=== PATIENT | female | born 1985 | race Caucasian/White ===

== ENCOUNTER 2017-02-04 18:39 | Emergency (ER) | payer MEDICAID ==
[~2017-02-04] VITALS: Ht 162.6 cm; Wt 100.8 kg
[~2017-02-04 18:39] MED LIST: Docusate Sod/Senna PO; IBUP600 PO; OXYC10 PO; RANI150 PO; ZOLO50TA PO; [UNRECOGNIZED DRUG - CODE] IM
[2017-02-04 18:45] VITALS: BP 125/83; PULSE 100; RESP 16; TEMP 99; O2SAT 100; O2SAT 62
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
[2017-02-04] MEDS ORDERED: KETOROLAC TROMETHAMINE 60 MG/2 ML (IM) VIAL IM ONE (19:30)
[2017-02-04] MEDS ORDERED: IBUP-232 PO (19:38)
[2017-02-04] MEDS ORDERED: EXTR500C PO (19:38)
[2017-02-04] MEDS ORDERED: CYCL1TAB29 PO (19:38)
== END 2017-02-04 19:48 | disposition home or self-care (01) ==
LOC: PHED 18:39
DX: S39.012A Strain of muscle, fascia and tendon of lower back, initial encounter (principal); X58.XXXA Exposure to other specified factors, initial encounter; Y93.72 Activity, wrestling; Y92.9 Unspecified place or not applicable
CPT/HCPCS: 96372; 99283; J1885

== ENCOUNTER 2017-02-15 16:20 | Emergency (ER) | payer SELFPAY ==
[~2017-02-15] VITALS: Ht 162.6 cm; Wt 102.0 kg
[~2017-02-15 16:20] MED LIST changes: +CYCL1TAB29 PO; -Docusate Sod/Senna PO; +EXTR500C PO; +IBUP-232 PO; -IBUP600 PO; -OXYC10 PO; -RANI150 PO; -ZOLO50TA PO; -[UNRECOGNIZED DRUG - CODE] IM
[2017-02-15 16:30] VITALS: BP 111/81; PULSE 75; RESP 15; TEMP 98.6; O2SAT 98
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
[2017-02-15] MEDS ORDERED: KETOROLAC TROMETHAMINE 60 MG/2 ML (IM) VIAL IM ONE (17:00)
[2017-02-15] MEDS ORDERED: DIAZEPAM 5 MG TAB PO ONE (17:15)
[2017-02-15 18:05] VITALS: RESP 14
== END 2017-02-15 18:10 | disposition home or self-care (01) ==
LOC: PHEFT 16:20
DX: G57.01 Lesion of sciatic nerve, right lower limb (principal)
CPT/HCPCS: 96372; 99284; J1885

== ENCOUNTER 2017-06-13 16:16 | Emergency (ER) | payer OTHER ==
[~2017-06-13] VITALS: Ht 160 cm; Wt 102.4 kg
[2017-06-13 16:21] VITALS: BP 126/63; PULSE 84; RESP 15; TEMP 98.6; O2SAT 96
[2017-06-13] MEDS ORDERED: BUSP15TA PO (16:28)
[2017-06-13] MEDS ORDERED: ZOLO100T PO (16:28)
--- NOTE | 2017-06-13 16:52 | PD ---
HPI Chief Complaint: Cold / Flu Symptoms Time Seen by Provider: 16:28 Travel History International Travel<30 days: No Contact w/Intl Traveler<30days: No Traveled to known affect area: No History of Present Illness HPI 31-year-old female presents to the emergency room for evaluation of nonproductive cough, congestion, sore throat, and body aches for the past 4 days. Patient reports subjective fevers but has not actually taken her temperature. Her boyfriend was sick with similar symptoms. She has not taken anything [id number] for her symptoms. No chronic medical conditions. She takes BuSpar and Zoloft daily. History Past Medical Histgory Hx Cancer: No Social History Alcohol Use: Yes (rarely) Tobacco Use: No Allergies-Medications (Allergen,Severity, Reaction): Coded Allergies: No Known Allergies (Verified , 06/13/17) Reported Meds & Prescriptions Reported Meds & Active Scripts Active Reported Buspirone (Buspirone HCl) 15 Mg Tab Unknown Dose PO BID Zoloft (Sertraline HCl) 100 Mg Tab 100 Mg PO DAILY Review of Systems Except as stated in HPI: all other systems reviewed are Neg Physical Exam Narrative GENERAL: Well-nourished, well-developed female in no acute distress. Afebrile. Ambulatory. SKIN: Focused skin assessment warm/dry. HEAD: Normocephalic. EYES: No scleral icterus. No injection or drainage. NECK: Supple, trachea midline. No JVD or lymphadenopathy. ENT: Mucosa pink and moist. Mild erythema without edema or exudates. No uvular edema. No uvular, palatal, or tonsillar deviation. Airway patent. Nasal turbinates appear normal without nasal blood, purulent drainage or septal hematoma. EARS: Bilateral pinnae and external canals appear within normal limits. Bilateral tympanic membranes without erythema, dullness or perforation. CARDIOVASCULAR: Regular rate and rhythm without murmurs, gallops, or rubs. RESPIRATORY: Breath sounds equal bilaterally. No accessory muscle use. No crackles, rales, wheezes, or rhonchi. Data Data Last Documented VS Vital Signs Date Time Temp Pulse Resp B/P (MAP) Pulse Ox O2 Delivery O2 Flow Rate FiO2 06/13/17 16:21 98.6 84 15 126/63 (84) 96 MDM Medical Screen Exam Complete: Yes Emergency Medical Condition: No Differential Diagnosis Upper respiratory infection Narrative Course 31-year-old female presents to the emergency room for evaluation of upper respiratory symptoms for the past 4 days. She is afebrile well-appearing in the emergency room. Vital signs stable. Physical exam reveals no erythema and bilateral tympanic membranes. Mild erythema of the pharynx without edema or exudates. Lungs are clear and equal bilaterally. This is viral upper respiratory infection. No indication for antibiotics at this time. Patient was told to follow-up with the primary care physician if symptoms persist for greater than 10 days or she develops worsening fevers. She understands and agrees. There are no urgent or emergent medical conditions at this time. A medical screening exam was performed: At the time of evaluation the presenting medical condition was determined not to be of an emergent nature. The patient was given the option of receiving additional care, but declined. Patient was given options for additional community resources from which to obtain care. The Patient Has Been advised to seek medical attention for their presenting complaint. The patient has been advised to return to the ER at any time if an emergent condition develops. Primary Impression: Encounter for medical screening examination Disposition: 01 DISCHARGE HOME Condition: Stable Susanna Ruff Jun 13, 2017 16:52
== END 2017-06-13 16:52 | disposition left against medical advice (07) ==
LOC: PHEFT 16:16
DX: R05 Cough (principal)
CPT/HCPCS: 99281